=== PATIENT | male | born 1945 | race Caucasian/White ===

== ENCOUNTER 2016-04-06 07:14 | Day surgery (SDC) | payer MEDICARE, MEDICAID ==
[2016-02-10 17:00] VITALS: BMI 25.2
[2016-04-06] MEDS ORDERED: CEFAZOLIN 1 GM VIAL ONE (07:30)
[2016-04-06] MEDS ORDERED: HYDROmorphone 1 MG INJECTION IV PRN ×2 (07:50)
[2016-04-06] MEDS ORDERED: LABETALOL 20 MG/4 ML SYRINGE IV PRN (07:50)
[2016-04-06] MEDS ORDERED: ONDANSETRON HCL 4 MG ODT TAB PO PRN (07:50)
[2016-04-06] MEDS ORDERED: MEPERIDINE 25 MG/ML TUBEX IV PRN (07:50)
[2016-04-06] MEDS ORDERED: FENTANYL 100 MCG/2 ML VIAL IV PRN ×2 (07:50)
[2016-04-06] MEDS ORDERED: hydrALAZINE 20 MG/ML VIAL IV PRN (07:50)
[2016-04-06] MEDS ORDERED: ONDANSETRON HCL 4 MG/2 ML VIAL IV PRN ×2 (07:50→12:32)
--- NOTE | 2016-04-06 08:02 | HIM.ANES ---
Anesthesia Evaluation & Plan Diagnoses: VENTRAL HERNIA WITHOUT OBSTRUCTION OR GANGRENE (04/06/16) - Focused Review of Systems Cardiac History: Yes: Hx Angina, Hx Heart Attack (1999), Hx Cardiac Disorders, Hx Abdominal Aortic Aneurysm (3CM STABLE PER CT SCAN 03/02/2015 FOLLOW UP 3 YEARS), Hx Abnormal Cholesterol/Hyperlipidemia, Hx Aneurysm (08/2015 CT SHOWS STABLE 4.6 X4.4CM ASCENDING WITH 3.8CM AORTIC ARCH) HEENT: Yes: Cataracts (cataract surgery with IOL last year), Cataract Removal ( bilateral IOL), Hx Vision Problem (reading glasses), Other HEENT Problems No: Glaucoma, Macular Degeneration, Hx Dysphagia, Temporomandibular Joint Disease (TMJ), Hx Ear Problem Respiratory: Yes: Hx Chronic Obstructive Pulmonary Disease (COPD), Hx Pneumonia (2013) Gastrointestinal: Yes: Hx Gastroesophageal Reflux Disease, Hx Gastrointestinal Disorders, Hx Chronic Constipation, Hx Colonoscopy Genitourinary: Yes: Hx Renal Disease (CKD with CRI baseline creatinine generally runs between 1.2 and 1.6.), Hx Renal Failure Neurological/Musculoskeletal: Yes: Hx Back Pain No: HX Cerebrovascular Accident, Hx Transient Ischemic Attacks (TIA), Hx Alzheimer's Disease, Hx Dementia, Hx Confusion, Hx Seizures, Hx Syncope, Hx Head Trauma, Hx Neurological Disorders Psychological: No Hx Anxiety, No Hx Depression, Yes Hx Mental/Emotional Disorders, No Hx Bipolar Disorder Blood/Autoimmune: Yes: Hx Blood Transfusions, Hx Anemia, Hx AIDS (DIAGNOSED 1989), Hx Hepatitis (type) (HEPATITIS B ) Smoking Status: Former smoker Past Social History: Denies: Substance Use Disorder Surgical History: Yes: Hip (ORIF RT HIP 2014), Other (1 month hx of correction AAA) No: Nasal, T&A Other Surgical History: AORTIC ANEURYSM REPAIR 2013 - Focused Physical Exam NPO since: after Midnight Mallampati: Class II Thyromental Distance: Greater than 3 Neck: Full Range of Motion Dental: Normal - no significant findings Cardiovascular/Chest: Normal Respiratory: Lungs clear Any problems with anesthesia, including nausea and vomiting?: No Any relatives with a history of Malignant Hyperthermia?: No Does the patient have a history of Motion Sickness-: No Other: Problem List Problem Status Onset Abdominal pain Acute Ventral hernia Acute HIV (human immunodeficiency virus infection) Chronic Hepatitis B infection Chronic Allergies Allergy/AdvReac Type Severity Reaction Status Date / Time Sulfa (Sulfonamide Allergy Severe Bleeding Verified 04/06/16 07:28 Antibiotics) Home Medications Medication Instructions Recorded Last Taken Type Tamsulosin HCl [Flomax] 0.4 mg PO BID 01/30/12 04/05/16 22:00 History Atorvastatin [Lipitor 10 mg 10 mg PO DAILY 02/15/12 04/05/16 22:00 History Tablet] Darunavir Ethanolate [Prezista] 800 mg PO QAM 07/27/13 04/05/16 12:00 History Dolutegravir Sodium [Tivicay] 50 mg PO DAILY 07/27/13 04/05/16 12:00 History Esomeprazole Mag Trihydrate 40 mg PO DAILY 07/27/13 04/05/16 12:00 History [Nexium] Ritonavir [Norvir] 100 mg PO QAM 07/27/13 04/05/16 12:00 History Solifenacin Succinate [Vesicare] 5 mg PO DAILY 07/27/13 04/05/16 12:00 History Albuterol Sulfate [Ventolin Hfa] 2 puff INH Q6H PRN 05/20/14 04/03/16 History Citalopram (anti-depressant) 40 mg PO HS 05/20/14 04/05/16 22:00 History [Celexa] Lamivudine [Epivir] 300 mg PO DAILY 05/20/14 04/05/16 12:00 History Ashley-3 Fatty Acids/Fish Oil [Fish 2,000 mg PO BID 05/20/14 04/05/16 22:00 History Oil 1,000 mg Capsule] Calcium Carbonate + Vitamin D 500 mg PO BID #60 tab 05/24/14 04/05/16 12:00 Rx [Oscal with Vitamin D] Emtricitabine [Emtriva] 200 mg PO DAILY 03/02/15 04/05/16 12:00 History Oxycodone Immediate Release 10 mg PO TID 03/02/15 04/05/16 22:00 History [Oxy-Ir] PEG-Electrolytes (Miralax) 17 gm PO DAILY PRN 03/02/15 04/04/16 12:00 History [Miralax] Vitamins,Minerals,Iron [Hemocyte 1 tab PO DAILY 06/11/15 04/05/16 12:00 History Plus] Aspirin (Enteric Coated) [Halfprin] 81 mg PO DAILY 04/04/16 04/05/16 12:00 History Height and Weight Patient's height 5 ft 7 in Patient's weight 68.492 kg BMI 25.2 - Anesthetic Plan Anesthesia Type: General ASA Class: 3 -: I have examined this patient and reviewed the medical record. The patient has been assessed prior to anesthesia. Risks and benefits of anesthesia and anesthetic technique options have been discussed and all questions answered. The patient accepts the risk and desires me to proceed with the planned anesthetic.
[2016-04-06] MEDS ORDERED: BUPIVACAINE 0.25% 30 ML VIAL ONE (09:15)
[2016-04-06] MEDS ORDERED: DOLUTEGRAVIR SODIUM 50 MG PO SCH (12:30)
[2016-04-06] MEDS ORDERED: ALBUTEROL 6.7 GM MDI INH PRN (12:30)
[2016-04-06] MEDS ORDERED: SOLIFENACIN SUCCINATE 5 MG PO SCH (12:30)
[2016-04-06] MEDS ORDERED: EMTRICITABINE 200 MG PO SCH (12:30)
[2016-04-06] MEDS ORDERED: PEG-ELECTROLYTE 17 GM PACK PO PRN (12:30)
[2016-04-06] MEDS ORDERED: SIMETHICONE 80 MG TAB PO PRN (12:32)
[2016-04-06] MEDS ORDERED: MAGNESIUM HYDROXIDE 30 ML BOTTLE PO PRN (12:32)
[2016-04-06] MEDS ORDERED: HYDROmorphone 50 ML IV PRN (12:34)
[2016-04-06] MEDS ORDERED: HYDROmorphone 1 MG INJECTION ONE ×3 (12:34→12:53)
[2016-04-06] MEDS ORDERED: LR 1,000 ML IV ONE ×2 (12:34)
[2016-04-06] MEDS ORDERED: Pharmacy Discontinue All Previous Acetaminophen Orders SCH (13:00)
[2016-04-06] MEDS ORDERED: Acetaminophen, Intravenous 1,000 MG/100 ML IVBOT IV ONE (13:00)
[2016-04-06] MEDS ORDERED: HYDROmorphone 50 ML IV ONE (13:08)
[2016-04-06] MEDS ORDERED: HYDROmorphone 1 MG INJECTION IV ONE (13:22)
[2016-04-06] MEDS ORDERED: ALBUTEROL 6.7 GM MDI INH SCH (13:35)
[2016-04-06] MEDS: Cefazolin 1gm/50 ml D5W 1 GM/50 ML RTU IV SCH ×2 (14:43→23:51)
[2016-04-06] MEDS: OXYCODONE HCL 5 MG TABLET PO SCH ×2 (14:47→22:51)
[2016-04-06] MEDS: RITONAVIR 100 MG PO SCH (14:48)
[2016-04-06] MEDS: DARUNAVIR 800 MG TABLET PO SCH (14:49)
[2016-04-06] MEDS: LAMIVUDINE 150 MG TAB PO SCH (14:49)
[2016-04-06] MEDS: TOLTERODINE 4 MG LA CAP PO SCH (14:50)
[2016-04-06] MEDS: Docusate Sodium 100 MG CAP PO SCH ×2 (14:50→22:38)
[2016-04-06] MEDS ORDERED: Vaccine Screening Complete SCH (15:00)
[2016-04-06] MEDS: IBUPROFEN INTRAVENOUS 800 MG in NS 250 ML IV SCH ×2 (15:20→20:38)
[2016-04-06] MEDS: LR 1,000 ML IV SCH (15:56)
[2016-04-06] MEDS: TAMSULOSIN HCL 0.4 MG CAP PO SCH ×2 (15:56→22:37)
--- NOTE | 2016-04-06 16:12 | CAPUEKG ---
[place], [place] Test Date: 2016-04-06 Pat Name: VIPIN BAUER Department: Room: Gender: Male Tray Packer: : Requested By: Order Number: Reading MD: Ho Carrion MD Measurements Intervals [place] Rate: 67 P: 58 [place]: 204 QRS: 51 QRSD: 128 T: 37 QT: 436 QTc: 460 Interpretive Statements Normal sinus rhythm Right bundle branch block Abnormal ECG Electronically Signed On 04-06-16 16:12:01 EST by Ho Carrion MD [id number]> [id number]
[2016-04-06] MEDS ORDERED: LIDOCAINE 100 MG PFS IV ONE (17:27)
[2016-04-06] MEDS ORDERED: NEOSTIGMINE 1 MG/1 ML (1:1000) INJ 10 ML MDV IM ONE (17:27)
[2016-04-06] MEDS ORDERED: DEXAMETHASONE 4 MG/ML VIAL IV ONE (17:27)
[2016-04-06] MEDS ORDERED: ONDANSETRON HCL 4 MG/2 ML VIAL IV ONE (17:27)
[2016-04-06] MEDS ORDERED: LABETALOL 5 MG/ML MDV IV ONE (17:27)
[2016-04-06] MEDS ORDERED: METOCLOPRAMIDE 10 MG/2 ML VIAL IV ONE (17:27)
[2016-04-06] MEDS ORDERED: PROPOFOL 200 MG/20 ML VIAL IV ONE (17:27)
[2016-04-06] MEDS ORDERED: GLYCOPYRROLATE 1 MG VIAL IM ONE (17:27)
[2016-04-06] MEDS ORDERED: SUCCINYLCHOLINE 20 MG/1 ML INJ 10 ML MDV IV ONE (17:27)
[2016-04-06] MEDS ORDERED: MIDAZOLAM 2 MG/2 ML VIAL IV ONE (17:27)
[2016-04-06] MEDS ORDERED: FENTANYL 100 MCG/2 ML VIAL IV ONE (17:27)
[2016-04-06] MEDS ORDERED: ROCURONIUM 50 MG/5 ML VIAL IV ONE (17:27)
[2016-04-06] MEDS ORDERED: EPHEDrine 50 MG/ML VIAL IM ONE (17:27)
--- NOTE | 2016-04-06 17:49 | SC.ANESPOS ---
Post-Anesthesia Note LOC: Fully Awake Post-Anesthesia Assessment: Awake, Returned to Baseline, Hemodynamically Stable , Pain Control Adequate Phase I & II Recovery Complete: Yes Apparent Anesthesia Complication: No : N PACU Discharge Time: 13:55 - Vital Signs Blood Pressure: 101/65 Pulse: 83 Resp Rate: 18 O2 Sat: 95 Temp: 97.8 F - Comments Anesthesia Discharge Time Report Time 13:55
[2016-04-06] MEDS: Acetaminophen, Intravenous 1,000 MG/100 ML IVBOT IV SCH (19:15)
--- NOTE | 2016-04-06 19:43 | HIMOPRPT ---
PROCEDURE: DATE OF PROCEDURE: 04/06/16 PREOPERATIVE DIAGNOSIS: Incisional hernia. POSTOPERATIVE DIAGNOSIS: Incarcerated incisional hernias. PROCEDURE: Laparoscopic repair of incarcerated incisional hernia. SURGEON: Jaspal Shabazz MD. ANESTHESIA: General. ESTIMATED BLOOD LOSS: 100cc PROCEDURE IN DETAIL: The patient was placed supine on the operating table. After induction of anesthesia, the patient was prepped and draped in the usual fashion. A 5-mm incision was made in the left subcostal region. An Optiview trocar was placed without any difficulties. The abdomen was then insufflated with CO2 until a pressure of 15 mmHg was achieved. A camera was introduced and the abdomen was inspected. Numerous adhesions were present from the omentum up to the abdominal wall. Incarcerated fat was also noted at the ventral hernia site. We went ahead and placed a 5 mm and an 11-mm port on the left side of the abdomen through separate incisions under direct visualization. We then were able to take down the adhesions. This was done with a combination of laparoscopic Endo Aylin and the Harmonic scalpel. This took well over an hour as these were very thick. Once we had done this, we could measure the defect. We went ahead and took down part of the falciform to give us more room to place a patch as well. We then obtained a Bard Composix mesh patch. Stay sutures had been placed in all 4 cardinal points and in the center of the patch. We introduced this into the abdominal cavity. Using a Oakridge suture passer, we were able to pull up and pass these sutures through the abdominal wall and lifted up the patch up against the abdominal wall. This left the monofilament mesh against the peritoneum and abdominal wall and the PTFE side toward the viscera. We then tied these down suspending the patch, thus holding it in place. We then used a Secure Strap Tacker circumferentially and in concentric circles to transfix this to the abdominal wall. At this point, we reinspected the abdominal cavity. There was no evidence of any bleeding or any other issues. We went ahead and removed the ports and allowed the CO2 to escape. The large port site was closed at the level of the fascia using 0-Vicryl sutures. We infiltrated all the wounds with 0.25% Marcaine, irrigated them with saline and then closed them in layers using 4-0 Monocryl and Dermabond. Sponge, needle, and instrument counts were correct.
[2016-04-06] MEDS ORDERED: Citalopram HBr 40 MG TABLET PO SCH (21:00)
[2016-04-07] MEDS: Acetaminophen, Intravenous 1,000 MG/100 ML IVBOT IV SCH ×3 (00:56→12:35)
[2016-04-07] MEDS: LR 1,000 ML IV SCH ×2 (00:57→18:39)
[2016-04-07] MEDS: IBUPROFEN INTRAVENOUS 800 MG in NS 250 ML IV SCH ×2 (02:27→08:28)
[2016-04-07] MEDS ORDERED: PANTOPRAZOLE 40 MG TAB PO SCH (06:00)
[2016-04-07] MEDS: Cefazolin 1gm/50 ml D5W 1 GM/50 ML RTU IV SCH ×2 (06:06→06:47)
[2016-04-07] MEDS: OXYCODONE HCL 5 MG TABLET PO SCH ×2 (06:06→15:36)
[2016-04-07] MEDS: LAMIVUDINE 150 MG TAB PO SCH (08:27)
[2016-04-07] MEDS: Docusate Sodium 100 MG CAP PO SCH (08:27)
[2016-04-07] MEDS: TOLTERODINE 4 MG LA CAP PO SCH (08:27)
[2016-04-07] MEDS: RITONAVIR 100 MG PO SCH (08:27)
[2016-04-07] MEDS: TAMSULOSIN HCL 0.4 MG CAP PO SCH (08:27)
[2016-04-07] MEDS: DARUNAVIR 800 MG TABLET PO SCH (08:28)
[2016-04-07] MEDS ORDERED: ATORVASTATIN 10 MG TAB PO SCH (09:00)
--- NOTE | 2016-04-07 13:47 | PCM.DCS92 ---
- Final/Secondary Discharge Diagnosis (1) Ventral hernia Chronic K43.9 - VENTRAL HERNIA WITHOUT OBSTRUCTION OR GANGRENE Present on Admission: Yes O (2) HIV (human immunodeficiency virus infection) Chronic Z21 - ASYMPTOMATIC HUMAN IMMUNODEFICIENCY VIRUS INFECTION STATUS Present on Admission: Yes (3) Hepatitis B infection Chronic Present on Admission: Yes V H H Discharge Disposition: Home Discharge Condition: Stable Cognitive Discharge Status: Unimpaired Fuctional Discharge Status: Independent Home Medications/ New Prescriptions: No Action Tamsulosin HCl [Flomax] 0.4 mg PO BID Atorvastatin [Lipitor 10 mg Tablet] 10 mg PO DAILY Darunavir Ethanolate [Prezista] 800 mg PO QAM Dolutegravir Sodium [Tivicay] 50 mg PO DAILY Ritonavir [Norvir] 100 mg PO QAM Solifenacin Succinate [Vesicare] 5 mg PO DAILY Esomeprazole Mag Trihydrate [Nexium] 40 mg PO DAILY [place]-3 Fatty Acids/Fish Oil [Fish Oil 1,000 mg Capsule] 2,000 mg PO BID Lamivudine [Epivir] 300 mg PO DAILY Citalopram (anti-depressant) [Celexa] 40 mg PO HS Albuterol Sulfate [Ventolin Hfa] 2 puff INH Q6H PRN PRN Reason: SHOB/Wheezing Calcium Carbonate + Vitamin D [Oscal with Vitamin D] 500 mg PO BID #60 tab Oxycodone Immediate Release [Oxy-Ir] 10 mg PO TID Emtricitabine [Emtriva] 200 mg PO DAILY PEG-Electrolytes (Miralax) [Miralax] 17 gm PO DAILY PRN PRN Reason: Constipation Vitamins,Minerals,Iron [Hemocyte Plus] 1 tab PO DAILY Aspirin (Enteric Coated) [Halfprin] 81 mg PO DAILY Cyclobenzaprine HCl [Flexeril] 10 mg PO BID PRN PRN Reason: Muscle Spasms Diet at Discharge: As Tolerated Activity: As Tolerated, No Heavy Lifting - DC Summary Notes Hospital Course Note:: Discharge summary on patient named VIPIN BAUER admitted to [facility] on 04/06/16 by Jaspal Shabazz MD. Date of discharge is 04/07/16. Patient udnerwent repair of incarcerated incisional ventral hernia. He is doing well. will follow up in office next week. - Physical Exam Vital Signs: Initial Vitals Temperature 98.2 F 04/06/16 07:28 Pulse Rate 66 04/06/16 07:28 Respiratory Rate 18 04/06/16 07:28 Blood Pressure 140/92 04/06/16 07:28 Pulse Oxygen Saturation 92 04/06/16 07:28 Constitutional: Alert Oriented to: Time, Person, Place - HEENT Head: Normal Respiratory: Normal - CTA Cardiovascular: Normal - GI Palpation: Normal Tenderness: Mild Tinoco's Sign: Negative
[2016-04-07 13:59] VITALS: BP 107/77; PULSE 70; TEMP 97.7
[2016-04-07] MEDS ORDERED: ACETAMINOPHEN 325 MG/TAB TABLET PO SCH (19:00)
== END 2016-04-07 17:28 | disposition home or self-care (01) ==
LOC: SDC 07:14 → INTOOBSV 14:15 → MPS3 14:15
PROVIDERS: ADMIT Surgery; ATTEND Surgery
PROC: 0WUF4JZ Supplement Abdominal Wall with Synthetic Substitute, Percutaneous Endoscopic Approach (ICD-10-PCS; principal; 2016-04-06 09:05)
DX: K43.0 Incisional hernia with obstruction, without gangrene (principal); K66.0 Peritoneal adhesions (postprocedural) (postinfection); Z21 Asymptomatic human immunodeficiency virus [HIV] infection status; B18.1 Chronic viral hepatitis B without delta-agent; Z79.82 Long term (current) use of aspirin; I51.9 Heart disease, unspecified; Z79.899 Other long term (current) drug therapy; Z87.891 Personal history of nicotine dependence
CPT/HCPCS: 49655; 51701; 51798; 93005; A9270; C1781; G0237; G0378; J0131; J0690; J1170; J1741; J3490; J7050; J0330; J1100; J2001; J2250; J2405; J2710; J2765; J3010; S0020